=== PATIENT | female | born 2000 | race Asian ===

== ENCOUNTER 2022-01-16 06:38 | Emergency (ER) | payer SELFPAY ==
--- NOTE | 2022-01-16 07:40 | NUR ---
Pt not in waiting room.
== END 2022-01-16 07:41 | disposition left against medical advice (07) ==
LOC: ER 06:38
DX: Z53.21 Procedure and treatment not carried out due to patient leaving prior to being seen by health care provider (principal)

== ENCOUNTER → 2022-09-21 | Emergency (ER) | payer BC, OTHER ==
[~2022-09-21] VITALS: Ht 167.6 cm; Wt 52.2 kg
[~2022-09-21] MED LIST: METR500T PO
--- NOTE | 2022-09-21 08:00 | NUR ---
seen and examined by MD Kenny
--- NOTE | 2022-09-21 08:03 | NUR ---
Patient is being assessed by MD Kenny witnessed by Chelsi FAUSTIN
--- NOTE | 2022-09-21 08:09 | NUR ---
vaginal culture collected and sent to lab
[2022-09-21 08:16] LABS: *BILIRUBIN,URIN NEGATIVE (NEGATIVE); *BLOOD, URINE NEGATIVE (NEGATIVE); *CLARITY,URINE CLEAR (CLEAR); *COLOR,URINE YELLOW (YELLOW); *KETONES,URINE NEGATIVE (NEGATIVE); *UROBILINOGEN,URINE 0.2 E.U./dl (NORMAL); LEUKOCYTE ESTERASE ,URINE NEGATIVE (NEGATIVE); NITRITE, URINE NEGATIVE (NEGATIVE); UGLUCOSE NEGATIVE (NEGATIVE)
[2022-09-21 08:35] LABS: *URINE HCG, QUAL NEGATIVE (NEGATIVE)
--- NOTE | 2022-09-21 09:00 | NUR ---
Patient discharged to home in stable condition. Written and verbal after care instructions given. Patient verbalizes understanding of instructions. Stressed follow up or return to ER for worsening s/s.
[2022-09-21 09:01] VITALS: BP 122/74
== END | disposition home or self-care (01) ==
LOC: ER 07:35
DX: N76.0 Acute vaginitis (principal); B96.89 Other specified bacterial agents as the cause of diseases classified elsewhere
CPT/HCPCS: 84703; 87210; A4663